=== PATIENT | male | born 1945 | race Caucasian/White ===

== ENCOUNTER → 2020-06-24 10:32 | Outpatient (CLI) | payer MEDICARE, OTHER, SELFPAY ==
[2020-06-24 12:17] LABS: Add Manual Diff / Slide Review NO; Basophils Absolute Auto 0 /uL (0-100); Eosinophils Absolute Auto 100 /uL (0-450); Eosinophils Percent Auto 2.8 % (2-4); Hematocrit 38.4 % (41-53); Hemoglobin 12.8 g/dL (13.5-17.5); Lymphocytes Absolute Auto 1800 /uL (1100-4500); Lymphocytes Percent Auto 40.3 % (25-40); Mean Corpuscular HGB Conc 33.3 % (30-36); Monocytes Absolute Auto 500 /uL (0-900); Monocytes Percent Auto 10.4 % (3-14); Neutrophils Absolute Auto 2100 /uL (1500-7000); Neutrophils Percent Auto 45.5 % (50-75); Platelet Count 282 X10^3/uL (150-400); Red Blood Cell Count 4.01 X10^6/uL (4.5-5.9); Red Cell Distribution Width 13.5 % (11.6-14.8); White Blood Cell Count 4.6 X10^3/uL (4.5-11.0)
== END ==
PROVIDERS: PCP Family Medicine; Referring Provider Orthopaedic Surgery; Visit Provider Orthopaedic Surgery
DX: Z01.818 Encounter for other preprocedural examination (principal); Z01.812 Encounter for preprocedural laboratory examination
CPT/HCPCS: 36415; 85025; 93005

== ENCOUNTER → 2020-07-21 08:30 | Outpatient (CLI) | payer MEDICARE, OTHER, SELFPAY ==
[2020-07-21 11:47] LABS: COVID19 -Nasal RAPID Negative (Negative)
== END ==
PROVIDERS: PCP Family Medicine; Visit Provider Physician Assistant
DX: Z11.59 Encounter for screening for other viral diseases (principal)
CPT/HCPCS: 87635

== ENCOUNTER 2020-07-23 07:28 | Day surgery (SDC) | payer MEDICARE, OTHER, SELFPAY ==
[2020-07-23] VITALS (18 sets, daily range): BP systolic 89–151; BP diastolic 46–79; PULSE 50–73; RESP 11–18; TEMP 35.8–36.7; O2SAT 87–100; BMI 25.4
--- NOTE | 2020-07-23 06:40 | DI.RAD.S_ITS ---
PROCEDURE: XR HIP W PEL IF DONE RT 2V INDICATIONS: right total hip TECHNIQUE: 2 view(s) of the hip acquired. COMPARISON: [facility] [place], [place], XR PELVIS WITH BILATERAL LATERAL HIPS, 04/17/2020, 9:13. FINDINGS: Bones: Patient is status post right hip arthroplasty, with hardware components in expected positions. The hip joint appears congruent. The visualized bony structures appear intact. Note is made of previous left hip arthroplasty. Degenerative joint disease is present at the sacroiliac joints bilaterally. There is severe degenerative disc and facet disease in the lower lumbar spine. Soft tissues: Overlying postoperative changes are noted. No suspicious soft tissue densities. IMPRESSION: Total right hip arthroplasty with prosthesis in anatomic alignment. Dictated by: Kathrine Barron M.D. on 07/23/2020 at 11:21 Approved by: Kathrine Barron M.D. on 07/23/2020 at 11:22
[2020-07-23] MEDS: LACTATED RINGERS 1,000 ML 42 ML IV (08:05)
[2020-07-23] MEDS: PREGABALIN 75 MG CAPSULE PO (08:10)
[2020-07-23] MEDS: ACETAMINOPHEN 325 MG TABLET 975 MG PO (08:10)
[2020-07-23] MEDS: CELECOXIB 200 MG CAPSULE PO (08:10)
--- NOTE | 2020-07-23 08:21 | PM.PREOP ---
Pre-operative Note COVID-19 COVID-19 status: Negative Result date/Date tested (Pos, Neg/Pending): 07/22/20 Interval Note History & Physical reviewed/Exam performed by Physician: Yes Changes to H&P: No
[2020-07-23] MEDS: CEFAZOLIN 2 GM/100 ML FROZ.PIGGY IV ×2 (08:54→17:37)
[2020-07-23] MEDS: TRANEXAMIC ACID 1,000 MG VIAL 2000 MG INJ ×2 (09:11→10:04)
--- NOTE | 2020-07-23 09:26 | SUR.OPER ---
Lateral on padded OR bed. Gel axillary roll. Arms secured on padded armboard with pillow supporting top arm. Padded hip positioner braces x4 - anterior and posterior chest and pelvis. Additional gel pad used anterior pelvis. Gel pad under bottom leg from knee to foot and secured with tape over sheet.
[2020-07-23] MEDS: KETOROLAC 30 MG/ML VIAL IV (09:32)
[2020-07-23] MEDS: MORPHINE 4 MG/ML INJ INJ (09:32)
[2020-07-23] MEDS: ROPIVACAINE 0.5% PF 5 MG/ML 20ML VIAL 60 ML INJ (09:32)
--- NOTE | 2020-07-23 10:34 | PM.OP.1 ---
Operative Date/Time/Diagnoses Date of procedure: 07/23/20 Time of procedure: 10:34 Pre-op diagnosis: Right hip degenerative joint disease Post-op diagnosis: same Procedure & Clinicians Procedure: Right total hip arthroplasty (CPT code 56416 with social work assistant) Same procedure as scheduled: Yes Indications: Patient is an 75-year-old male with severe right hip DJD. The patient has pain with activities and at rest, limited ambulation and activity tolerance, difficulties with ADLs, and failure of conservative treatment. We have discussed the nature of condition, treatment options, risks and benefits, and patient elects to proceed with total hip arthroplasty and gives informed consent. Surgeon: Truong Sandhu Keeler Polygraph Operator: Denver Tena Anesthesia Type: General and Spinal Operative Notes Closure Type: primary Specimen(s): none sent Prosthetic devices, grafts, tissues, transplants, or devices: Acetabulum: [employer] R3 acetabular component size 56 mm Femoral component: [employer] Anthology stem size 10 with standard offset Femoral head: 36 mm + 0 cobalt chrome Estimated Blood Loss (mL): 150 Procedure in detail: After satisfaction induction of anesthetic, and administration of IV antibiotics, the patient was positioned in the lateral decubitus position with all bony prominences well padded and pelvic position secured using a hip men's and boys' clothing salesperson positioning device. Right hip and lower extremity prepped and draped in the usual sterile fashion, 1st dose of intravenous tranexamic acid was administered, then a longitudinal incision was created centered over the greater trochanter and carried sharply through the skin and subcutaneous tissues down to the fascia pako which was divided longitudinally and retracted with a Charnley retractor. External rotators visualize, cut, tagged, and retracted posteriorly, then the capsule was cut in a T-type fashion with the corners tagged and retracted. Hip was dislocated and femoral neck cut made according to preoperative templating. Acetabular retractors then placed, and the acetabular labrum and osteophytes were excised. The acetabulum was then sequentially reamed to 55 mm with an excellent circumferential ream and fit with the trial. The trial component was removed and a permanent size 56 mm Boone [employer]hew R3 acetabular component was selected, positioned, and impacted with satisfactory position and fixation achieved. Permanent liner was then inserted with the elevated lip directed posteriorly. Soft tissue then removed off the lateral femoral neck in the lateral neck was entered using a box osteotome. T-handled reamers placed down the canal followed by sequential broaching to 10 with the final broach left in place for trial reduction which demonstrated excellent leg length, range of motion, and stability characteristics with a 36 mm +0 trial ball. The trial and broach were removed, and a permanent size 10 [employer]hew Anthology stem was selected and inserted with excellent position and fixation achieved. Another trial reduction yielded the above characteristics so the trial ball was exchanged for a permanent 36 mm +0 cobalt chrome ball. The hip was irrigated and reduced and excellent leg length range of motion and stability characteristics were achieved and maintained. Periarticular tissues were infiltrated with morphine, ropivacaine, and Toradol. The hip was copiously irrigated, and the capsule repaired with #2 Ethibond, and the piriformis was repaired back to the greater trochanter with the same. Fascia pako closed with interrupted #1 Ethibond sutures, and the subcutaneous tissues were closed in 2 layers of 0 Vicryl and 2 0 Vicryl. Skin was closed with ZipLine closure and sterile dressings applied. Second dose of tranexamic acid was administered intravenously, and the anesthetic was terminated. Complications: none Post-operative Condition: stable Disposition: PACU Plan for aftercare: Patient will be admitted to the acute care sellers, and anticipate discharge on afternoon of surgery or postop day 1 with follow-up in office in 10-14 days. Outpatient physical therapy will be arranged and patient will continue to observe posterior hip precautions. Patient will continue use of aspirin for DVT prophylaxis postop.
[2020-07-23] MEDS: LACTATED RINGERS 1,000 ML 125 ML IV ×2 (11:43→20:02)
[2020-07-23] MEDS: ACETAMINOPHEN 325 MG TABLET 650 MG PO ×2 (14:24→20:02)
--- NOTE | 2020-07-23 15:56 | PT-IP ANOTE ---
Attempted to see pt at 1500. Pt was still having numbness in the R foot and was unable to perform R ankle DF or PF. Obtained social hx and PLOF. Will attempt to see pt tomorrow AM.
[2020-07-23] MEDS: DOCUSATE 100 MG CAPSULE PO (20:02)
[2020-07-23] MEDS: ASPIRIN EC 81 MG TABLET PO (20:02)
[2020-07-24] MEDS: CEFAZOLIN 2 GM/100 ML FROZ.PIGGY IV (00:51)
[2020-07-24] MEDS: HYDROCODONE/ACET 5/325 TABLET 1 TAB PO ×2 (00:53→08:12)
[2020-07-24 01:03] VITALS: BP 126/73; PULSE 52; RESP 18; TEMP 36.5; O2SAT 96
--- NOTE | 2020-07-24 01:15 | PC.NURSE ---
Patient is alert and oriented. Breath sounds CTA with RA sat of 96%. HRR but bradycardic with rate of 52 bpm. Denies nausea. BT present and is passing flatus. States he has some mild burning with urination but denies frequency or urgency; using urinal. Able to move himself in bed. Bulky dressing to right hip is CDI. Does complain of 4/10 pain so medicated with Vicodin and ice pack applied. CMS intact except for some residual numbness below toes on plantar surface of left foot. Has not yet been out of bed due to post op numbness. Wearing bilateral calf SCD's. Fall risk score is moderate and bed alarm is activated.
[2020-07-24 04:36] VITALS: BP 135/57; PULSE 62; RESP 18; TEMP 36.5; O2SAT 100
[2020-07-24 06:18] LABS: Hematocrit 32.9 % (41-53); Hemoglobin 11.1 g/dL (13.5-17.5)
[2020-07-24 07:00] VITALS: BP 129/87; PULSE 59; RESP 16; TEMP 36.6; O2SAT 97
--- NOTE | 2020-07-24 07:36 | PM.PNPO.1 ---
Subjective Subjective Date Patient Seen: 07/24/20 Time Patient Seen: 07:37 Interval history: POD #1 s/p right HIPOLITO with Dr. Sandhu. Patient is having very minimal pain this AM. He has mobilized in his room. Exam Vital Signs (past 8 hours): - 07/24/20 01:03 07/24/20 04:36 Temperature 97.7 F 97.7 F Pulse Rate 52 L 62 Respiratory Rate 18 18 Blood Pressure 126/73 135/57 L Pulse Oximetry 96 100 Oxygen Delivery Method Room Air Oxygen Flow Rate 0 Narrative Exam Narrative: Patient lying in bed in NAD. He is alert and oriented X3. Calves are soft, compressible, and nontender bilaterally. SCDs on and functioning. He is able to actively dorsiflex and plantarflex. SILT throughout BLEs. Objective Labs Result Diagrams: 07/24/20 06:05 Labs: Laboratory Results - last 24 hr 07/24/20 06:05 Hgb 11.1 L Hct 32.9 L PFSH Social History household members: spouse Smoking Status: Never smoker alcohol intake: current Assessment & Plan Post-op Postoperative Procedures: Procedures Operation Date: 07/23/20 08:45 Actual Procedures Side Surgeon p Total Hip Arthroplasty Right Truong Sandhu MD Patient will mobilize with PT today. Continue current pain control. Continue ASA 81 mg BID for VTE prophylaxis. If patient mobilizing safely with adequate pain control he can go home today.
[2020-07-24] MEDS: ASPIRIN EC 81 MG TABLET PO (08:11)
[2020-07-24] MEDS: DOCUSATE 100 MG CAPSULE PO (08:11)
[2020-07-24] MEDS: ACETAMINOPHEN 325 MG TABLET 650 MG PO (08:12)
--- NOTE | 2020-07-24 09:24 | CM.IDA ---
Initial DCP Assessment Note Pt is a 75 yo male, resident of [place], now POD#1 from right hip surgery w/ Dr Sandhu PCP: Keegan Leyva Payer: MIO/Shane Reviewed chart, DC order from Ortho has already been initiated this morning. Met w/patient to introduce role. Patient is awaiting his morning therapy session. Patient is indp. at baseline an has planned to return home w/his partner Melodie to assist as needed. Patient explains he has had the other hip replaced and so feels he knows what to expect once home. Patient feels confident at this time to return home w/family to assist and denies needs from this LACTATION COORDINATOR this morning. No needs expected from DC planning team although will remain available in case this changes today. GINETTE Saini
--- NOTE | 2020-07-24 10:42 | PC.NURSE ---
Assess- Patient worked with physical therapy and is sitting up in his chair. Dressing to l.hip will be changed before patient goes home around 1130. Given 1 vicodin for pain and helpful, patient has good cms and ppx2.
--- NOTE | 2020-07-24 11:56 | PT.IIE ---
Current Diagnoses Unilateral primary osteoarthritis, right hip (07/23/20) Surgery Performed Operation Date: 07/23/20 08:45 Actual Procedures p Total Hip Arthroplasty(Right) - Truong Sandhu MD Physical Therapy Inpatient Evaluation/Re-Eval M1 PT/OT-IP Prior Functional Status Start: 07/23/20 13:30 Freq: NEEDED Status: Discharge Protocol: Document 07/23/20 15:03 DE (Rec: 07/23/20 15:11 DE [id number]) Medical Review Prior Functional Status Medical History Reviewed Yes Diet/Fluid Consistency Regular Communication WNL. No deficits noted. Able to make needs known. Mobility and Gait IND for all mobility and amb without AD at baseline. Pt was able to walk ~3.5 miles. Activities of Daily Living and IADL's IND for all ADLs and IADLs at baseline. Prior Functional Level (Other details) Hx of L HIPOLITO. Pt likes to bike. Social History Household Members spouse Living Arrangements House Number of Floors (Floors) One Floor Number of Stairs To Enter/Railing? 2 BERTHA through garage without railing but has wall on the R side. 3 BERTHA through front without railing. Home Environment High Toilet,Walk in Shower Home Equipment Front Wheel Walker,Straight Cane,Raised Toilet Seat w/ Armrests,Long Handled Shoe Horn,Sock Aid Employment Status Retired Additional Social History Comment Pt lives with significant other, Melodie, who will be available full-time at home to assist. Pt's daughter will also be with him until the end of July. M2 PT-IP Current Condition Start: 07/23/20 13:30 Freq: NEEDED Status: Discharge Protocol: Document 07/24/20 11:55 DE (Rec: 07/24/20 12:21 DE [id number]) Physical Therapy Current Condition Current Condition Evaluation Date 07/24/20 Treatment Diagnosis R HIPOLITO posterior approach; Difficulty in walking. Onset Date 07/23/20 Precautions Posterior Hip Precautions No Hip Flexion > 90 degrees,No Hip Internal Rotation,No Hip Adduction Weight Bearing Status Weight Bearing Status Weight Bear as Tolerated M3 PT-IP Subjective Start: 07/23/20 13:30 Freq: NEEDED Status: Discharge Protocol: Document 07/24/20 11:55 DE (Rec: 07/24/20 12:21 DE [id number]) Subjective Physical Therapy Visit Type Type Initial Evaluation Visit Start Time 10:02 Visit Stop Time 10:30 Total Visit Minutes 28 Notes SPT Tanner led session under direct supervision of Leila. Number of FIELD SALES MANAGER Visits 0 Physical Therapy Visit Comments Patient Comments Pt is agreeable to do PT. M4 PT-IP Mobility and Gait Start: 07/23/20 13:30 Freq: NEEDED Status: Discharge Protocol: Document 07/24/20 11:55 DE (Rec: 07/24/20 12:21 DE [id number]) PT-Bed Mobility Assessment Supine to Sit Supine to Sit Standby Assistance,Head of Bed Elevated PT-Transfer Assessment Sit to and From Stand Sit to and from Stand Contact Guard Assistance,Use of Upper Extremities Equipment Transfer Assistive Device Gait Belt,Front Wheeled Walker Orthotic/Prosthetic Devices or Brace: No Transfers Transfer Destination Chair Transfer Technique Amb with FWW Transfer Ability Level of Assist Contact Guard Assistance,Use of Upper Extremities Comments Mobility Comments Pt was inclined in bed upon arrival. Pt completed supine to sit at L side EOB with SBA, elevated HOB, use of BUE. Pt performed sit to stand with CGA FWW. Pt was able to tolerate WB on RLE well. After standing for ~30 sec, pt amb ~150 ft in the hallway to the stairs and back to the room with SBA FWW. Pt demonstrated antalgic step-through gait pattern with decreased stride length and decreased feet clearance. Pt then performed 3 steps up and down x2 without railing with CGA and SPC on L hand. Pt was educated on stair climbing technique to lead with L foot for ascending and R foot for descending. No unsteadiness or LOB was observed but pt had tendency to go too fast and forget the stair climbing technique. Pt was instructed with cues to slow down. Pt then amb back to the room and sat down in the chair with SBA FWW. Call light placed within reach. Gait Assessment Gait Gait Assistance Required: Standby Assistance Distance (Feet) 150 Able to Maintain Weight Bearing Status Yes During Gait Assistive Devices Assistive Device Gait Belt,Front Wheeled Walker Orthotic/Prosthetic Devices or Brace: No Gait Deviations General Gait Pattern Antalgic,Decreased Stride Length,Decreased Feet Clearance Factors Limiting Gait Function Factors Limiting Gait Function Decreased Activity Tolerance, Decreased Strength,Limited Range of Motion,Pain,Poor Balance,Poor Safety Awareness Comments Gait Comments See mobility comments. Stair Climbing Assessment Evaluation Level of Assist On Stairs Contact Guard Assistance Devices Stair Climbing Assistive Devices Straight Cane Technique/Endurance Stair Climbing Direction Ascend and Descend Stair Climbing Technique Step to Step Number of Steps Climbed 3 Query Text: Stair Climbing Set # Repetitions (reps) 2 Comments Stair Climbing Comments See mobility comments. PT-Balance Assessment Sitting Balance and Reactions Static Sitting Balance Ability Normal Dynamic Sitting Balance Ability Normal Standing Balance and Reactions Static Standing Balance Ability Good Dynamic Standing Balance Ability Good M5 PT-IP Objective Assessments Start: 07/23/20 13:30 Freq: NEEDED Status: Discharge Protocol: Document 07/24/20 11:55 DE (Rec: 07/24/20 12:21 DE [id number]) Orientation Orientation/Cognition Level of Alertness Alert Orientation Name,Age,Birthday,Month,Date, Year,Day of Week,Place, Situation Language Function Ability No Deficits Noted Safety Awareness Decreased Safety Awareness Memory Description No Deficits Noted Comments Pt demonstrated tendency to perform activities too fast without thinking about it. Gross Range of Motion Lower Extremity ROM Assessment Right Impaired Strength Lower Extremity Strength Assessment Right Impaired Coordination Assessment Gross Coordination Gross Coordination WNL Sensation Assessment Sensation Gross Sensation WNL Light Touch Intact Muscle Tone Muscle Tone WNL Yes M6 PT-IP Treatment Start: 07/23/20 13:30 Freq: NEEDED Status: Discharge Protocol: Document 07/24/20 11:55 DE (Rec: 07/24/20 12:21 DE [id number]) Physical Therapy Treatment Education Education Provided Precautions,Weight Bearing Status,Post-Op Packet,Safety Other Treatments Other Treatment Performed Pt was educated on precautions , WB status, safety, stair climbing technique, and role of PT. M7 PT-IP Assessment and Plan Start: 07/23/20 13:30 Freq: NEEDED Status: Discharge Protocol: Document 07/24/20 11:55 DE (Rec: 07/24/20 12:21 DE [id number]) PT Summary Assessment and Plan Potential Rehabilitation Potential Excellent Status of Condition at Evaluation Stable Summary Impairments Pain,ROM,Strength,Balance,Bed Mobility,Transfers,Gait, Activity Tolerance Progress Towards Goals Safe For Discharge Assessment Summary Jeanmarie is a 75 yo male POD 1 s/p R HIPOLITO posterior approach with hx of L HIPOLITO posterior approach. At baseline, pt was IND for all mobility, amb, and ADLs without AD or limitations. on evaluation, pt was CGA-SBA for all mobility, transfers, amb, and stair climbing. Pt amb ~150 ft with FWW and performed 3 steps up and down x2 with SPC on L hand . PT anticipates pt will be safe to d/c home with assistance once medically cleared. Pt will benefit from outpatient PT to improve hip ROM and strength as well as overall balance and activity tolerance. Frequency of Treatment Frequency Of Treatment Discharge Discharge Recommendations PT Discharge Recommendations Home with Assistance, Outpatient PT Transportation Needs at Discharge Private Vehicle Treatment was provided by AUSTIN Simon and supervised by Leila Gamboa, PT. I personally reviewed this note and agree with its contents.
== END 2020-07-24 11:15 | disposition home or self-care (01) ==
LOC: OR 07:29 → AC 07:30
PROVIDERS: PCP Family Medicine; Referring Provider Family Medicine; Visit Provider Orthopaedic Surgery
PROC: 0SR90JZ Replacement of Right Hip Joint with Synthetic Substitute, Open Approach (ICD-10-PCS; CPT 27130; principal; 2020-07-23 08:45)
DX: M16.11 Unilateral primary osteoarthritis, right hip (principal)
CPT/HCPCS: 27130; 36415; 73502; 85014; 85018; 97161; C1776; J0690; J1100; J1885; J2250; J2270; J2405; J2704; J3010